=== PATIENT | male | born 1975 | race Two or more races ===

== ENCOUNTER 2024-06-03 15:04 | Emergency (ER) | payer BC ==
[~2024-06-03] VITALS: Ht 200.7 cm; Wt 113.4 kg
[2024-06-03] MEDS ORDERED: TRAMADOL HCL 50 MG TABLET PO STA (16:40)
[2024-06-03] MEDS ORDERED: KETOROLAC TROMETHAMINE 30 MG VIAL IM STA (16:40)
== END 2024-06-03 17:05 | disposition home or self-care (01) ==
LOC: ER 15:07
DX: K08.89 Other specified disorders of teeth and supporting structures (principal)